=== PATIENT | female | born 1980 | race Caucasian/White ===

== ENCOUNTER 2022-08-05 12:29 | Inpatient (IN) | payer OTHER ==
[~2022-08-05] VITALS: Ht 170.2 cm; Wt 81.7 kg
[2022-08-05] MEDS ORDERED: ALLEGRA ALLERG180 MG PO (13:05)
[2022-08-05 14:55] VITALS: BP 112/76
--- NOTE | 2022-08-05 15:25 | NUR ---
ARRIVAL TO UNIT PT ARRIVED TO UNIT FROM ED VIA [facility]. AOX4, ABLE TO TRANSFER FROM GURNEY TO BED W/O ASSIST. PERF DIVERTICULITIS, CURRENTLY NPO. MILD ABD DISTENTION, TENDER TO PALPATION. REPORTS PAIN TOLERABLE, PLAN TO MEDICATE PER EMAR. NO N/V. VSS. DR. SHETH TO DURING ADMISSION PROCESS, AWAITING FOR PLAN OF CARE. ABX INFUSED, FLUIDS CURRENTLY INFUSING ORDERED. ORIENTED TO , NO NEEDS @ THIS TIME. CALL LIGHT IN REACH.
--- NOTE | 2022-08-05 17:19 | NUR ---
SHIFT SUMMARY ED ADMIT, PERF DIVERTICULITIS. VSS. IND IN RM, CALLS PRN. REPORTS CONSTANT TENDERNESS IN ABD, BUT PAIN IS TOLERABLE W/ ORDERED MEDICATION. VOIDING. NO EPISODES/REPORT OF N/V. PER SURGEON, SMALL SIPS & CHIPS OKAY. FLUIDS INFUSING ORDERED. CURRENTLY RESTING IN , NO NEEDS AT THIS TIME. WILL REPORT TO ONCOMING RN.
[2022-08-05 20:03] VITALS: BP 129/82
[2022-08-06 02:05] VITALS: BP 118/75
--- NOTE | 2022-08-06 04:52 | NUR ---
SUMMARYNO ACUTE EVENTS THIS SHIFT, CONT. IV ABX AND FLUIDS. MEDICATED FOR PAIN AND MANAGED WELL. PATIENT HAVING SEVERAL BM AND VOIDING WELL THIS SHIFT. PATIENT IS INDEP. IN ROOM . AWAITING SURGICAL CONSULT IN AM. VSS, CALL LIGHT IN REACH.
[2022-08-06 05:12] LABS: Hematocrit 36.3 % (33.0-51.0); Hemoglobin 12.4 g/dL (11.5-16.0); Mean Corpuscular HGB 32.7 pg (26.0-34.0); Mean Corpuscular HGB Conc 34.2 g/dL (31.5-36.5); Mean Corpuscular Volume 96 fL (80-100); Mean Platelet Volume 9.5 fL (9.1-12.4); Platelet Count 193 K/mm3 (150-400); RDW Coefficient Variation 12.9 % (11.7-14.2); RDW Standard Deviation 45.7 fL (35.1-46.3); Red Blood Cell Count 3.79 M/mm3 (3.80-5.20); White Blood Cell Count 13.03 K/mm3 (4.00-11.30)
[2022-08-06 05:34] LABS: Bun/Creatinine Ratio 16.6 (12.0-20.0); C-REACTIVE PROTEIN, EXT RANGE 18.4 mg/dL (0.000-0.300); Calcium, Blood 8.7 mg/dL (8.5-10.1); Creatinine, Blood 0.73 mg/dL (0.40-1.00); Potassium, Blood 3.6 mmol/L (3.5-5.5)
[2022-08-06 07:02] VITALS: BP 122/79
[2022-08-06 15:02] VITALS: BP 132/80
--- NOTE | 2022-08-06 16:55 | NUR ---
SHIFT SUMMARY PT IS A&OX4, PLEASANT, AND APPROPRIATE. PT IS NPO, VOIDING, AND REPORTS DIARRHEA. PT'S VSS, AMB INDEPENDENLY, AND PAIN MANAGED WITH TYLENOL AND DILAUDID. PLAN FOR CONTINUED CONSERVATIVE TX WITH ANTIBIOTICS AND HEAT THERAPY.
[2022-08-06 19:48] VITALS: BP 122/72
[2022-08-06 23:09] LABS: Adenovirus F 40/41 Not Detected (NOT DETECT); Astrovirus Not Detected (NOT DETECT); Campylobacter Sp Not Detected (NOT DETECT); Cryptosporidium Not Detected (NOT DETECT); Cyclospora Cayetanensis Not Detected (NOT DETECT); E. Coli O157 Not Detected (NOT DETECT); Entamoeba Histolytica Not Detected (NOT DETECT); Enteroaggregative E. coli-EAEC Not Detected (NOT DETECT); Enteropathogenic E. coli-EPEC Not Detected (NOT DETECT); Enterotoxigenic E. coli-ETEC Not Detected (NOT DETECT); Giardia Lamblia Not Detected (NOT DETECT); Norovirus GI/GII Not Detected (NOT DETECT); Plesiomonas Shigelloides Not Detected (NOT DETECT); Rotavirus A Not Detected (NOT DETECT); Salmonella Sp Not Detected (NOT DETECT); Sapovirus Not Detected (NOT DETECT); Shiga Toxin-prod E. coli-STEC Not Detected (NOT DETECT); Shigella/Enteroin E. coli-EIEC Not Detected (NOT DETECT); Vibrio Cholerae Not Detected (NOT DETECT); Vibrio Sp Not Detected (NOT DETECT); Yersinia Enterocolitica Not Detected (NOT DETECT)
[2022-08-07 03:27] VITALS: BP 132/80
--- NOTE | 2022-08-07 04:18 | NUR ---
SUMMARY NO ACUTE EVENTS THIS SHIFT, PATIENT IS ON IV FLUIDS AND ABX Q6. TOLERATING PAIN MEDICATION PRN. NPO STATUS. VOIDING AND PASSING STOOLS. INDEP. IN ROOM. CALL LIGHT IS IN REACH. WILL REPORT TO DAYSHIFT RN.
[2022-08-07 07:01] VITALS: BP 120/80
[2022-08-07 14:10] VITALS: BP 121/74
--- NOTE | 2022-08-07 18:16 | NUR ---
SHIFT SUMMARY: PERFED DIVERTIC PATIENT IS A&OX4. VS ARE WNL AND IS ON RA. PATIENTS PAIN HAS BEEN MANAGED WITH IV DILAUDID. PATIENT HAD A COUPLE OF SMALL LOOSE BM'S TODAY BUT PATIENT REPORTS "NOTHING COMPARED TO YESTERDAY AND I HAVE BEEN PEEING A LOT MORE THAN POOPING WHICH IS GREAT!". SHE HAS BEEN TOLERATING HER CLEAR LIQUID DIET AND EVEN STATED "I'M ACTUALLY DREAMING ON WHEN I CAN EAT PIE AGAIN". PATIENT IS INDEP. IN THE ROOM. IV FLUIDS AND ZOSYN ABX ARE RUNNING. PATIENT CALLS APPROPRIATELY. SHE IS LAYING IN BED WITH CALL LIGHT WITHIN REACH.
[2022-08-07 19:57] VITALS: BP 135/81
[2022-08-08 04:47] VITALS: BP 125/83
[2022-08-08 04:48] LABS: Hematocrit 34.6 % (33.0-51.0); Hemoglobin 11.7 g/dL (11.5-16.0); Mean Corpuscular HGB 31.8 pg (26.0-34.0); Mean Corpuscular HGB Conc 33.8 g/dL (31.5-36.5); Mean Corpuscular Volume 94 fL (80-100); Mean Platelet Volume 9.2 fL (9.1-12.4); Platelet Count 210 K/mm3 (150-400); RDW Coefficient Variation 12.3 % (11.7-14.2); RDW Standard Deviation 42.6 fL (35.1-46.3); Red Blood Cell Count 3.68 M/mm3 (3.80-5.20); White Blood Cell Count 6.39 K/mm3 (4.00-11.30)
[2022-08-08 05:05] LABS: Albumin, Blood 2.7 g/dL (3.4-5.0); Anion Gap 5 mmol/L (6-16); Blood Urea Nitrogen 4 mg/dL (8-24); Bun/Creatinine Ratio 6.2 (12.0-20.0); CO2, Blood 26 mmol/L (21-32); Calcium, Blood 8.8 mg/dL (8.5-10.1); Chloride, Blood 111 mmol/L (98-108); Creatinine, Blood 0.65 mg/dL (0.40-1.00); Glomerular Filtration Rate 113 (60-); Glucose, Blood 110 mg/dL (70-99); Phosphorus, Blood 3.1 mg/dL (2.5-4.9); Potassium, Blood 3.9 mmol/L (3.5-5.5); Sodium, Blood 142 mmol/L (136-145)
--- NOTE | 2022-08-08 05:16 | NUR ---
SUMMARY NO ACUTE EVENTS THIS SHIFT, PATIENT TOLERATING CL DIET, LOOSE STOOLS HAVE SLOWED DOWN PER PATIENT. VOIDING ADEQUATELY. DENIES N/V. CONTINUING IV ABX, AND FLUIDS. MEDICATED FOR PAIN WITH APPROPRIATE RELIEF. VSS, PATIENT IS INDEP IN ROOM. WILL REPORT TO DAY SHIFT.
[2022-08-08 08:04] VITALS: BP 146/80
--- NOTE | 2022-08-08 16:48 | NUR ---
SHIFT SUMMARY PT A&O X4, UP AND WALKING AROUND THE FLOOR T/O SHIFT.PT CHANGE TO ORAL PAIN MEDIACTION PER DOCTORS ORDERS. PAIN CONTROLLED PER EMAR. TOLERTAING FULL LIQUID DIET WELL. NO CONCERNS AT THIS TIME.
[2022-08-08 20:44] VITALS: BP 133/90
[2022-08-09 04:27] VITALS: BP 129/82
--- NOTE | 2022-08-09 05:02 | NUR ---
SHIFT SUMMARY VSS. PT SLEPT WELL T/O THE NIGHT. PT MEDICATED FOR PAIN TWICE WITH NORCO, GOOD RESULTS NOTED. PT VOIDING W/O DIFFICULTY, PASSING STOOL AND FLATTUS. NO NAUSEA NOTED. PT TOLLERATING PO INTAKE. NO ACUTE EVENTS NOTED T/O THE NIGHT. PLAN FOR PT TO D/C HOME TODAY. THE PATIENT IS CURRENTLY SLEEPING, IN NO DISTRESS, CALL LIGHT IN REACH
[2022-08-09 07:52] VITALS: BP 136/88
[2022-08-09] MEDS ORDERED: VISBIOME 112.51 EACH PO (11:34)
[2022-08-09] MEDS ORDERED: CIPR250 PO (11:36)
[2022-08-09] MEDS ORDERED: METR500 PO (11:37)
[2022-08-09] MEDS ORDERED: ONDA4ODT MM (11:39)
[2022-08-09] MEDS ORDERED: Percocet 5-3251 EACH PO (11:40)
--- NOTE | 2022-08-09 12:19 | NUR ---
DISCHARGE SUMMARY PT A&O X4. IND IN ROOM AND IN HALLS. PT COMPLAINS OF PAIN IN THE LLQ, MEDICATED PER EMAR. RESPONDS WELL. TOLERATING LOW FIBER DIET WELL. PT EDUCATED AND RESPONDED WELL. NO FUTHER QUESTIONS AT THIS TIME. IV OUT AT THIS TIME. SCRIPT SENT WITH PT. WALKED OUT WTIH SPOUSE AND SON. ALL BELONGINGS WITH PT.
== END 2022-08-09 13:59 | disposition home or self-care (01) | DRG 392 ==
LOC: ER 12:29 → SURS 12:30
PROVIDERS: ADMIT Internal Medicine
DX: K57.20 Diverticulitis of large intestine with perforation and abscess without bleeding (principal); K21.9 Gastro-esophageal reflux disease without esophagitis; Z90.710 Acquired absence of both cervix and uterus; Z88.8 Allergy status to other drugs, medicaments and biological substances; Z79.899 Other long term (current) drug therapy
CPT/HCPCS: 36415; 80048; 80069; 83605; 85027; 85651; 86140; 87040; 87507; 96374; 96375; 99284-25; A9270; J1170; J1650; J1885; J2405; J2543; J3010; J7030

== ENCOUNTER → 2022-08-05 | Outpatient (CLI) | payer OTHER ==
[~2022-08-05] MED LIST: ALLEGRA ALLERG180 MG PO; CIPR250 PO; METR500 PO; ONDA4ODT MM; Percocet 5-3251 EACH PO; VISBIOME 112.51 EACH PO
[2022-08-05 10:42] LABS: BASOPHILS ABSOLUTE AUTO 0.04 K/mm3 (0.00-0.23); BASOPHILS PERCENT AUTO 0 % (0-2); EOSINOPHILS PERCENT AUTO 0 % (0-6); Hemoglobin 14.6 g/dL (11.5-16.0); IMMATURE GRAN ABSOLUTE AUTO 0.13 K/mm3 (0.00-0.10); IMMATURE GRAN PERCENT AUTO 1 % (0-1); LYMPHOCYTES ABSOLUTE AUTO 1.07 K/mm3 (0.84-5.20); LYMPHOCYTES PERCENT AUTO 6 % (21-46); MONOCYTES ABSOLUTE AUTO 1.31 K/mm3 (0.16-1.47); MONOCYTES PERCENT AUTO 7 % (4-13); Mean Corpuscular HGB 33.2 pg (26.0-34.0); Mean Corpuscular HGB Conc 35.6 g/dL (31.5-36.5); Mean Corpuscular Volume 93 fL (80-100); Mean Platelet Volume 9.6 fL (9.1-12.4); NEUTROPHILS ABSOLUTE AUTO 16.25 K/mm3 (1.96-9.15); NEUTROPHILS PERCENT AUTO 86 % (41-73); Platelet Count 223 K/mm3 (150-400); RDW Coefficient Variation 12.9 % (11.7-14.2); RDW Standard Deviation 44.1 fL (35.1-46.3)
[2022-08-05 10:52] LABS: Albumin, Blood 3.6 g/dL (3.4-5.0); Albumin/Globulin Ratio 0.9 (0.8-1.8); Bilirubin, Total 2.7 mg/dL (0.1-1.0); Bun/Creatinine Ratio 10.5 (12.0-20.0); Creatinine, Blood 0.86 mg/dL (0.40-1.00); Globulin, Blood 4.1 g/dL (2.2-4.0); Potassium, Blood 3.6 mmol/L (3.5-5.5); Total Protein, Blood 7.7 g/dL (6.4-8.2)
== END | disposition home or self-care (01) ==
LOC: LAB SHORT 10:31 → LAB 10:31
PROVIDERS: Physician Assistant
DX: R10.9 Unspecified abdominal pain (principal)
CPT/HCPCS: 80053; 82150; 83690; 85025

== ENCOUNTER 2022-11-10 11:21 | Day surgery (SDC) | payer OTHER ==
[~2022-11-10] VITALS: Ht 167.6 cm; Wt 82.4 kg
[2022-11-10] MEDS ORDERED: SERT20L (11:35)
[2022-11-10] MEDS ORDERED: MERIBIN5 MG (11:35)
[2022-11-10 13:54] VITALS: BP 122/84
== END 2022-11-10 13:45 | disposition home or self-care (01) ==
LOC: ORSCSDS 11:21
PROVIDERS: Surgery
PROC: 0DJD8ZZ Inspection of Lower Intestinal Tract, Via Natural or Artificial Opening Endoscopic (ICD-10-PCS; principal; 2022-11-10 13:00)
DX: K57.92 Diverticulitis of intestine, part unspecified, without perforation or abscess without bleeding (principal); K57.30 Diverticulosis of large intestine without perforation or abscess without bleeding; Z87.891 Personal history of nicotine dependence; K21.9 Gastro-esophageal reflux disease without esophagitis; F32.9 Major depressive disorder, single episode, unspecified
CPT/HCPCS: J2704; J7120

== ENCOUNTER 2024-06-20 06:31 | Day surgery (SDC) | payer OTHER ==
[~2024-06-20] VITALS: Ht 170.2 cm; Wt 101.9 kg
[~2024-06-20 06:31] MED LIST changes: +CENTRUM SILVER1 EAC2 PO; +MERIBIN5 MG; +NAPR220 PO; +OSTEOBIFLEX PO; +OXYC5 PO; +SERT20L; +ZOLOFT10013 PO; +ZYRTEC10 M2 PO
[2024-06-20] MEDS ORDERED: Amitriptyline H50 MG (07:38)
[2024-06-20] MEDS ORDERED: PROBIOTIC WOME1 EACH (07:38)
[2024-06-20] MEDS ORDERED: propofoL 50 ML IV ONE (08:17)
[2024-06-20] MEDS ORDERED: Lactated Ringer's 1,000 ML IV ONE ×3 (08:17→08:52)
[2024-06-20 09:14] VITALS: BP 137/82
== END 2024-06-20 09:14 | disposition home or self-care (01) ==
LOC: ORSCSDS 06:31
PROVIDERS: Surgery
PROC: 0DJD8ZZ Inspection of Lower Intestinal Tract, Via Natural or Artificial Opening Endoscopic (ICD-10-PCS; principal; 2024-06-20 08:45)
DX: K62.89 Other specified diseases of anus and rectum (principal); K57.92 Diverticulitis of intestine, part unspecified, without perforation or abscess without bleeding; F32.A Depression, unspecified; Z93.3 Colostomy status; Z87.19 Personal history of other diseases of the digestive system; K21.9 Gastro-esophageal reflux disease without esophagitis; Z87.891 Personal history of nicotine dependence; Z79.899 Other long term (current) drug therapy
CPT/HCPCS: 36415; 82565; J2704; J7120